=== PATIENT | male | born 1990 | race Caucasian/White ===

== ENCOUNTER 2016-07-08 03:36 | Emergency (ER) | payer OTHER ==
[~2016-07-08] VITALS: Ht 188 cm; Wt 113.4 kg
[~2016-07-08 03:36] MED LIST: TYLENOL #31 TAB PO
[2016-07-08 03:48] VITALS: BP 142/81
--- NOTE | 2016-07-08 04:38 | ED EYE COMPLAINT ---
History of Present Illness General Chief Complaint: Eye Problems Stated Complaint: "SOMETHING BEEN IN MY RT EYE FOR THE LAST 4HOURS" Source: patient Exam Limitations: no limitations Vital Signs & Intake/Output Vital Signs & Intake/Output Vital Signs Date Time Temp Pulse Resp B/P Pulse O2 O2 Flow FiO2 Ox Delivery Rate 07/08 0348 96.4 73 18 142/81 98 Room Air Allergies Coded Allergies: NO KNOWN ALLERGIES (07/10/15) Reconcile Medications Diclofenac Sodium 75 MG TABLET.DR 1 TAB PO BID PRN PAIN Sulfacetamide Sodium (Bleph-10) 10 % DROPS 2 GTT OPH 4 TIMES/DAY CORNEAL ABRASION Tylenol With Codeine (Tylenol With Codeine #3 Tablet) 1 TAB TAB 1-2 TAB PO Q6H PRN PAIN Triage Note: PT TO TRIAGE C/O ?SOMETHING IN R EYE X 4 HOURS. R EYE REDNESS NOTED. Triage Nurses Notes Reviewed? yes HPI: Patient presents for evaluation of a possible foreign body in the eye. Patient states that about 4 hours ago he had a sudden onset of right eye discomfort. He states this happened after rubbing his eye. Since then he has had a constant foreign body sensation over the lateral aspect of the right eye. He tried flushing his eye and opening his eye under water without improvement. He does wear contact lenses and states when he initially had the discomfort he noted that his contact lens had folded over and he removed it. However this did not resolve the discomfort. The discomfort has been constant described as moderate in intensity and nothing seems to make it feel better. Past History Travel History Traveled to [place] past 21 day No Medical History Any Pertinent Medical History? see below for history Neurological: NONE EENT: NONE Cardiovascular: NONE Respiratory: NONE Gastrointestinal: NONE Hepatic: NONE Renal: NONE Musculoskeletal: NONE Psychiatric: NONE Endocrine: NONE Blood Disorders: NONE Cancer(s): NONE SURGICAL SERVICES COORDINATOR/Reproductive: NONE Surgical History Surgical History: N Psychosocial History What is your primary language [place] Tobacco Use: Never used ETOH Use: occasional use Family History Hx Contributory? No Review of Systems Review of Systems Constitutional: Reports: no symptoms. Eyes: Reports: see HPI. Ear: Reports: no symptoms. Nose: Reports: no symptoms. Mouth: Reports: no symptoms. Throat: Reports: no symptoms. Respiratory: Reports: no symptoms. Cardiovascular: Reports: no symptoms. GI: Reports: no symptoms. Genitourinary: Reports: no symptoms. Musculoskeletal: Reports: no symptoms. Skin: Reports: no symptoms. Neurological/Psychological: Reports: no symptoms. Hematologic/Endocrine: Reports: no symptoms. Immunologic/Allergic: Reports: no symptoms. All Other Systems: Reviewed and Negative Physical Exam General Appearance: SEE BELOW General Inspection: normal inspection General Inspection: TEARING Eyelid: normal inspection, everted for exam Conjunctiva/Sclera: injected Cornea: abrasion EOM: intact Pupil: normal pupil Anterior Chamber: normal inspection Physical Exam Comments: Gen.: Well-nourished, well-developed, no acute respiratory distress. Head: Normocephalic, atraumatic. Eyes: See above Ears: Normal inspection bilaterally Nose: Normal inspection Throat/mouth : Moist mucosa Neck: Supple, full range of motion, no goiter Lungs: Quiet respirations Back: Normal range of motion Extremities: Normal range of motion grossly Neurologic: Cranial nerves grossly intact, speech is clear Skin: warm and dry Psychiatric: Calm, cooperative, no apparent delusions or hallucinations Progress Differential Diagnosis: corneal abrasion, corneal foreign body Plan of Care: See discharge instructions Departure Departure Disposition: HOME OR SELF CARE Condition: Stable Clinical Impression Primary Impression: Corneal abrasion, right Qualifiers: Encounter type: initial encounter Qualified Code: S05.01XA - Injury of conjunctiva and corneal abrasion without foreign body, right eye, initial encounter Referrals: PATIENT HAS NO PRIMARY CARE DR (PCP/Family) CHILO JOHNSON,KEYUR Amezcua Additional Instructions: Follow-up with your garment form assembler (if he or she feels comfortable managing a corneal abrasion) or the plastic surgeon listed within 24-48 hours for reevaluation. Bleph-10 as prescribed. Voltaren as needed for pain. Return immediately if any concerns or sudden worsening. Thank you for choosing the [facility] for your care. It was a pleasure to serve you today. Bertrand Mustafa M.D. [facility] Departure Forms: Customer Survey General Discharge Information Prescriptions: Current Visit Scripts Sulfacetamide Sodium (Bleph-10) 2 GTT OPH 4 TIMES/DAY #5 ML Diclofenac Sodium 1 TAB PO BID PRN PAIN #14 TAB
[2016-07-08] MEDS ORDERED: BLEPH-105 ML OPH (04:44)
[2016-07-08] MEDS ORDERED: DICLOFENAC SODI75 M2 PO (04:44)
== END 2016-07-08 04:50 ==
LOC: ERH 03:36
DX: S05.01XA Injury of conjunctiva and corneal abrasion without foreign body, right eye, initial encounter (principal); X58.XXXA Exposure to other specified factors, initial encounter